=== PATIENT | male | born 1935 | race Caucasian/White ===

== ENCOUNTER 2021-08-05 06:21 | Inpatient (IN) | payer MEDICARE ==
[2021-08-05 07:45] LABS: INR-International Normal Ratio 1.1
[2021-08-05 07:46] LABS: PTT 31.1 sec (22.9-36.1)
[2021-08-05 07:48] LABS: ALT (SGPT) 17 U/L (8-55); AST (SGOT) 24 U/L (5-34); Albumin 3.2 g/dL (3.4-4.8); Alkaline Phosphatase 85 U/L (40-110); Anion Gap 11 mmol/L (10-20); BUN (Urea Nitrogen) 16 mg/dL (8.4-25.7); Bilirubin, Total 0.8 mg/dL (0.2-1.2); Calc. Creatinine Clearance 0 mL/min (70-130); Calcium 9.4 mg/dL (7.8-10.44); Carbon Dioxide 33 mmol/L (23-31); Chloride 98 mmol/L (98-107); Globulin 3.2 g/dL (2.4-3.5); Glucose 126 mg/dL (83-110); Potassium 4.2 mmol/L (3.5-5.1); Protein, Total 6.4 g/dL (5.8-8.1); Sodium 138 mmol/L (136-145)
[2021-08-05 07:59] LABS: #Basophils 0.1 thou/uL (0.0-0.2); #Eosinphils 0.1 thou/uL (0.0-0.7); #Lymphocytes 2.1 thou/uL (1.20-3.40); #Monocytes 1.4 thou/uL (0.11-0.59); #Neutrophils 11.6 thou/uL (1.40-6.50); %Basophils 0.5 % (0.0-1.0); %Eosinophils 0.5 % (0.0-10.0); %Lymphocytes 13.9 % (21.0-51.0); %Monocytes 9.2 % (0.0-10.0); %Neutrophils 75.9 % (42.0-75.0); Hemoglobin 13.9 g/dL (14.0-18.0); MDiff Complete? YES; Mean Corpuscular HGB CONC 32.6 g/dL (32.0-36.0); Mean Corpuscular Hemoglobin 34.5 pg (27.0-31.0); Mean Platelet Volume 8.9 fL (7.4-10.4); Platelet Count 161 thou/uL (130-400); RBC Distribution Width 12.8 % (11.5-14.5); Red Blood Cell (RBC) Count 4.02 mill/uL (4.70-6.10); White Blood Cell (WBC) Count 15.3 thou/uL (4.8-10.8)
[2021-08-05 08:00] LABS: Macrocytosis SLIGHT = 6-15 cells (100X) (0-5/hpf)
[2021-08-05] MEDS ORDERED: Boostrix 0.5 ML (Tdap) VIAL ONE (08:16)
[2021-08-05] MEDS ORDERED: Morphine 2 MG/ML VIAL ONE (09:41)
[2021-08-05] MEDS ORDERED: Ondansetron PF 4 MG/2 ML Vial ONE (09:42)
[2021-08-05] MEDS ORDERED: hydrALAZINE 20 MG/ML VIAL SLOW IVP PRN (09:42)
[2021-08-05] MEDS ORDERED: Dextrose 50% Abboject 50 ML SYRINGE SLOW IVP PRN (09:42)
[2021-08-05] MEDS ORDERED: Dextrose 5% in Water 1,000 ML IV PRN (09:42)
[2021-08-05] MEDS ORDERED: Morphine 2 MG/ML VIAL SLOW IVP PRN (09:42)
[2021-08-05] MEDS ORDERED: Ondansetron PF 4 MG/2 ML Vial IVP PRN (09:42)
[2021-08-05] MEDS ORDERED: traMADol HCl 50 MG TAB PO PRN (09:48)
[2021-08-05] MEDS ORDERED: Cyclobenzaprine 10 MG TAB PO PRN (09:48)
[2021-08-05] MEDS ORDERED: Ibuprofen 600 MG TAB PO PRN (09:48)
[2021-08-05 11:15] LABS: SARS-CoV-2 NAA Rapid Test Not Detected (NotDetected)
[2021-08-05] MEDS: Sodium Chloride 0.9% 1,000 ML IV SCH (13:16)
[2021-08-05 14:56] VITALS: BMI 14.3
[2021-08-05] MEDS: Acetaminophen 500 MG TAB PO SCH ×3 (16:27→21:59)
[2021-08-05] MEDS: Gabapentin 100 MG CAP PO SCH ×2 (16:31→20:15)
[2021-08-05] MEDS: Latanoprost 0.005% Ophth Soln 2.5 ml Bottle EA EYE SCH (20:14)
[2021-08-05] MEDS: Senokot S 8.6-50 MG TAB PO SCH (20:16)
[2021-08-05] MEDS ORDERED: Famotidine 20 MG TAB PO SCH (21:00)
[2021-08-06] MEDS: Sodium Chloride 0.9% 1,000 ML IV SCH (01:20)
[2021-08-06] MEDS: Acetaminophen 500 MG TAB PO SCH ×4 (03:58→23:01)
[2021-08-06 06:45] LABS: #Lymphocytes 1.1 thou/uL (1.20-3.40); #Monocytes 1.3 thou/uL (0.11-0.59); #Neutrophils 10.2 thou/uL (1.40-6.50); %Basophils 0.2 % (0.0-1.0); %Eosinophils 0.2 % (0.0-10.0); %Lymphocytes 8.5 % (21.0-51.0); %Monocytes 10.3 % (0.0-10.0); %Neutrophils 80.8 % (42.0-75.0); Hemoglobin 12.8 g/dL (14.0-18.0); Mean Corpuscular HGB CONC 31.1 g/dL (32.0-36.0); Mean Corpuscular Hemoglobin 33.3 pg (27.0-31.0); Mean Platelet Volume 8.8 fL (7.4-10.4); Platelet Count 99 thou/uL (130-400); Platelet Morphology Comment Appears Decreased; RBC Distribution Width 12.9 % (11.5-14.5); Red Blood Cell (RBC) Count 3.84 mill/uL (4.70-6.10); White Blood Cell (WBC) Count 12.7 thou/uL (4.8-10.8)
[2021-08-06 06:50] LABS: Anion Gap 11 mmol/L (10-20); BUN (Urea Nitrogen) 12 mg/dL (8.4-25.7); Calc. Creatinine Clearance 53 mL/min (70-130); Calcium 8.5 mg/dL (7.8-10.44); Carbon Dioxide 30 mmol/L (23-31); Chloride 104 mmol/L (98-107); Glucose 91 mg/dL (83-110); Magnesium 1.8 mg/dL (1.6-2.6); Phosphorus 2.5 mg/dL (2.3-4.7); Potassium 4.3 mmol/L (3.5-5.1); Sodium 141 mmol/L (136-145)
[2021-08-06] MEDS ORDERED: Magnesium 2 GM/50 ML 2 GM in Premix Bag 1 BAG IVPB SCH (07:15)
[2021-08-06] MEDS ORDERED: PHOS-NAK 1 PKT PACK PO SCH (07:15)
[2021-08-06] MEDS ORDERED: CEFAZOLIN 2 GM in Premix Bag 1 BAG IVPB SCH (07:30)
[2021-08-06] MEDS ORDERED: predniSONE 5 MG TAB PO SCH (09:00)
[2021-08-06] MEDS: Gabapentin 100 MG CAP PO SCH ×4 (12:02→20:25)
[2021-08-06] MEDS: Folic Acid 1 MG TAB PO SCH (12:02)
[2021-08-06] MEDS: DorzolamidE/Timolol 2%/0.5% Ophth Soln 10 ml Bottle EA EYE SCH (12:02)
[2021-08-06] MEDS: Senokot S 8.6-50 MG TAB PO SCH ×2 (12:03→20:18)
[2021-08-06] MEDS: Magnesium Oxide 250 MG TAB PO SCH (12:03)
[2021-08-06] MEDS: Polyethylene Glycol 3350 17 GM Packet PO SCH (12:03)
[2021-08-06] MEDS: predniSONE 5 MG TAB PO SCH (12:03)
[2021-08-06] MEDS: Tamsulosin HCl 0.4 MG CAP PO SCH (12:04)
[2021-08-06] MEDS ORDERED: Famotidine/PF 20 mg/2ml Vial ONE (13:21)
[2021-08-06] MEDS ORDERED: Phenylephrine 10 MG/ML VIAL ONE (13:21)
[2021-08-06] MEDS ORDERED: Fentanyl 100 MCG/2 ML VIAL ONE (13:34)
[2021-08-06] MEDS ORDERED: PROPOFOL 200 MG/20 ML VIAL ONE (13:43)
[2021-08-06] MEDS ORDERED: Lidocaine 1% PF 5 ML VIAL ONE (13:43)
[2021-08-06] MEDS ORDERED: Dexamethasone 20 MG/5 ML VIAL ONE (13:43)
[2021-08-06] MEDS ORDERED: Ondansetron PF 4 MG/2 ML Vial ONE (13:43)
[2021-08-06] MEDS ORDERED: PHENYLEPHRINE-NS 100 MCG/ML 10 ML SYRINGE ONE (13:43)
[2021-08-06] MEDS: CEFAZOLIN 2 GM in Premix Bag 1 BAG IVPB SCH (20:17)
[2021-08-06] MEDS: Latanoprost 0.005% Ophth Soln 2.5 ml Bottle EA EYE SCH (20:18)
[2021-08-06] MEDS: traMADol HCl 50 MG TAB PO PRN (21:44)
[2021-08-07] MEDS: CEFAZOLIN 2 GM in Premix Bag 1 BAG IVPB SCH (04:36)
[2021-08-07] MEDS: Acetaminophen 500 MG TAB PO SCH ×3 (05:36→18:33)
[2021-08-07 05:41] LABS: #Lymphocytes 0.6 thou/uL (1.20-3.40); #Monocytes 1.1 thou/uL (0.11-0.59); #Neutrophils 8.8 thou/uL (1.40-6.50); %Basophils 0.1 % (0.0-1.0); %Eosinophils 0.1 % (0.0-10.0); %Lymphocytes 6.1 % (21.0-51.0); %Monocytes 10.6 % (0.0-10.0); %Neutrophils 83.2 % (42.0-75.0); Hemoglobin 10.5 g/dL (14.0-18.0); Mean Corpuscular HGB CONC 32.1 g/dL (32.0-36.0); Mean Corpuscular Hemoglobin 34.2 pg (27.0-31.0); Mean Platelet Volume 8.7 fL (7.4-10.4); Platelet Count 91 thou/uL (130-400); RBC Distribution Width 12.7 % (11.5-14.5); Red Blood Cell (RBC) Count 3.08 mill/uL (4.70-6.10); White Blood Cell (WBC) Count 10.5 thou/uL (4.8-10.8)
[2021-08-07 06:03] LABS: Anion Gap 10 mmol/L (10-20); BUN (Urea Nitrogen) 19 mg/dL (8.4-25.7); Calc. Creatinine Clearance 46 mL/min (70-130); Carbon Dioxide 30 mmol/L (23-31); Chloride 104 mmol/L (98-107); Glucose 145 mg/dL (83-110); Magnesium 2.1 mg/dL (1.6-2.6); Phosphorus 3.2 mg/dL (2.3-4.7); Potassium 4.7 mmol/L (3.5-5.1); Sodium 139 mmol/L (136-145)
[2021-08-07] MEDS: predniSONE 5 MG TAB PO SCH (09:12)
[2021-08-07] MEDS: Magnesium Oxide 250 MG TAB PO SCH (09:12)
[2021-08-07] MEDS: Senokot S 8.6-50 MG TAB PO SCH ×2 (09:12→20:21)
[2021-08-07] MEDS: Tamsulosin HCl 0.4 MG CAP PO SCH (09:12)
[2021-08-07] MEDS: Folic Acid 1 MG TAB PO SCH (09:12)
[2021-08-07] MEDS: DorzolamidE/Timolol 2%/0.5% Ophth Soln 10 ml Bottle EA EYE SCH (09:13)
[2021-08-07] MEDS: Polyethylene Glycol 3350 17 GM Packet PO SCH (09:23)
[2021-08-07] MEDS: Gabapentin 100 MG CAP PO SCH (10:41)
[2021-08-07] MEDS: Latanoprost 0.005% Ophth Soln 2.5 ml Bottle EA EYE SCH (20:21)
[2021-08-07] MEDS: Nicotine 7 MG PATCH TD SCH (20:21)
[2021-08-08] MEDS: Acetaminophen 500 MG TAB PO SCH ×4 (00:54→18:37)
[2021-08-08 06:11] LABS: #Eosinphils 0.1 thou/uL (0.0-0.7); #Lymphocytes 1.2 thou/uL (1.20-3.40); #Monocytes 0.9 thou/uL (0.11-0.59); #Neutrophils 5.7 thou/uL (1.40-6.50); %Basophils 0.4 % (0.0-1.0); %Eosinophils 0.7 % (0.0-10.0); %Monocytes 10.8 % (0.0-10.0); %Neutrophils 73.1 % (42.0-75.0); Hemoglobin 9.7 g/dL (14.0-18.0); Mean Corpuscular HGB CONC 30.9 g/dL (32.0-36.0); Mean Corpuscular Hemoglobin 32.8 pg (27.0-31.0); Mean Platelet Volume 8.9 fL (7.4-10.4); Platelet Count 90 thou/uL (130-400); RBC Distribution Width 12.4 % (11.5-14.5); Red Blood Cell (RBC) Count 2.97 mill/uL (4.70-6.10); White Blood Cell (WBC) Count 7.8 thou/uL (4.8-10.8)
[2021-08-08] MEDS ORDERED: Ferrous Sulfate 325 MG TAB PO SCH (08:00)
[2021-08-08] MEDS: Folic Acid 1 MG TAB PO SCH (09:10)
[2021-08-08] MEDS: Tamsulosin HCl 0.4 MG CAP PO SCH (09:10)
[2021-08-08] MEDS: Ferrous Sulfate 325 MG TAB PO SCH ×2 (09:11→20:00)
[2021-08-08] MEDS: predniSONE 5 MG TAB PO SCH (09:11)
[2021-08-08] MEDS: Magnesium Oxide 250 MG TAB PO SCH (09:11)
[2021-08-08] MEDS: Ascorbic Acid 500 mg Chewable Tablet PO SCH ×2 (09:11→20:00)
[2021-08-08] MEDS: Apixaban 2.5 MG TAB PO SCH ×2 (09:12→20:00)
[2021-08-08] MEDS: Polyethylene Glycol 3350 17 GM Packet PO SCH (09:12)
[2021-08-08] MEDS: DorzolamidE/Timolol 2%/0.5% Ophth Soln 10 ml Bottle EA EYE SCH (09:12)
[2021-08-08] MEDS: Senokot S 8.6-50 MG TAB PO SCH ×2 (09:12→20:00)
[2021-08-08] MEDS: Nicotine 7 MG PATCH TD SCH (18:32)
[2021-08-08] MEDS: traMADol HCl 50 MG TAB PO PRN ×2 (20:00→20:46)
[2021-08-08] MEDS: Latanoprost 0.005% Ophth Soln 2.5 ml Bottle EA EYE SCH (20:01)
[2021-08-09] MEDS: Acetaminophen 500 MG TAB PO SCH ×3 (00:13→11:46)
[2021-08-09] MEDS: Polyethylene Glycol 3350 17 GM Packet PO SCH (09:13)
[2021-08-09] MEDS: Senokot S 8.6-50 MG TAB PO SCH (09:14)
[2021-08-09] MEDS: Magnesium Oxide 250 MG TAB PO SCH (09:14)
[2021-08-09] MEDS: Ascorbic Acid 500 mg Chewable Tablet PO SCH (09:15)
[2021-08-09] MEDS: Folic Acid 1 MG TAB PO SCH (09:16)
[2021-08-09] MEDS: Apixaban 2.5 MG TAB PO SCH (09:17)
[2021-08-09] MEDS: Ferrous Sulfate 325 MG TAB PO SCH (09:17)
[2021-08-09] MEDS: predniSONE 5 MG TAB PO SCH (09:17)
[2021-08-09] MEDS: Tamsulosin HCl 0.4 MG CAP PO SCH (09:17)
[2021-08-09] MEDS: DorzolamidE/Timolol 2%/0.5% Ophth Soln 10 ml Bottle EA EYE SCH (09:18)
[2021-08-09 12:42] VITALS: BP 100/70; TEMP 98
== END 2021-08-09 12:30 | disposition home or self-care (01) | DRG 480 ==
LOC: ERS 06:21 → SURG A 09:22
PROVIDERS: ADMIT Surgery; ATTEND Surgery
PROC: 0QS704Z Reposition Left Upper Femur with Internal Fixation Device, Open Approach (ICD-10-PCS; principal; 2021-08-06)
DX: S72.142A Displaced intertrochanteric fracture of left femur, initial encounter for closed fracture (principal); J96.01 Acute respiratory failure with hypoxia; E44.1 Mild protein-calorie malnutrition; Z68.1 Body mass index [BMI] 19.9 or less, adult; Z20.822 Contact with and (suspected) exposure to COVID-19; W18.30XA Fall on same level, unspecified, initial encounter; S51.012A Laceration without foreign body of left elbow, initial encounter; J44.9 Chronic obstructive pulmonary disease, unspecified; F17.200 Nicotine dependence, unspecified, uncomplicated; I48.91 Unspecified atrial fibrillation; F03.90 Unspecified dementia, unspecified severity, without behavioral disturbance, psychotic disturbance, mood disturbance, and anxiety; K11.8 Other diseases of salivary glands; I95.9 Hypotension, unspecified; D69.6 Thrombocytopenia, unspecified; L89.151 Pressure ulcer of sacral region, stage 1; D64.9 Anemia, unspecified; Z85.118 Personal history of other malignant neoplasm of bronchus and lung; Z90.2 Acquired absence of lung [part of]; Z79.01 Long term (current) use of anticoagulants; Z79.899 Other long term (current) drug therapy; Z99.81 Dependence on supplemental oxygen
CPT/HCPCS: 36415; 70450; 71045; 72125; 80048; 80053; 83735; 84100; 84484; 85025; 85610; 85730; 86850; 86900; 86901; 90471; 90715; 93005; 94640; 96374; C1713; J0690; J1100; J2270; J2370; J2405; J2704; J3010; J3475; J7050; J7512; J7620; S0028; U0002

== ENCOUNTER 2021-08-23 20:50 | Inpatient (IN) | payer MEDICARE ==
[2021-08-23 21:39] LABS: Bilirubin Negative (Negative); Blood, Urine Trace (Negative); Clarity Extra Turbid (Clear); Glucose, Urine (Dipstick) Normal (Negative); Ketone, Urine Trace mg/dL (Negative); Leukocyte 75 Leu/uL (Negative); Nitrite Negative (Negative); Protein, Urine (Dipstick) 30 mg/dL (Neg-Trace); Specific Gravity, Urine 1.013 (1.002-1.036); Squamous Epithelial None Seen HPF (0-3); Urobilinogen Normal mg/dL (Less than 2); pH, Urine 7.5 (5.0-9.0)
[2021-08-23 21:42] LABS: #Lymphocytes 0.7 thou/uL (1.20-3.40); #Monocytes 0.5 thou/uL (0.11-0.59); #Neutrophils 5.2 thou/uL (1.40-6.50); %Basophils 0.1 % (0.0-1.0); %Lymphocytes 11.2 % (21.0-51.0); %Monocytes 7.6 % (0.0-10.0); Hemoglobin 11.6 g/dL (14.0-18.0); Mean Corpuscular HGB CONC 32.2 g/dL (32.0-36.0); Mean Corpuscular Hemoglobin 33.6 pg (27.0-31.0); Mean Platelet Volume 8.6 fL (7.4-10.4); Platelet Count 146 thou/uL (130-400); Red Blood Cell (RBC) Count 3.45 mill/uL (4.70-6.10); White Blood Cell (WBC) Count 6.4 thou/uL (4.8-10.8)
[2021-08-23 21:51] LABS: Bacteria/HPF 1+ HPF (None Seen)
[2021-08-23 22:00] LABS: ALT (SGPT) 15 U/L (8-55); AST (SGOT) 22 U/L (5-34); Albumin 2.7 g/dL (3.4-4.8); Alkaline Phosphatase 150 U/L (40-110); Anion Gap 10 mmol/L (10-20); BUN (Urea Nitrogen) 12 mg/dL (8.4-25.7); Bilirubin, Total 0.7 mg/dL (0.2-1.2); Calc. Creatinine Clearance 0 mL/min (70-130); Calcium 8.3 mg/dL (7.8-10.44); Carbon Dioxide 34 mmol/L (23-31); Chloride 101 mmol/L (98-107); Globulin 2.8 g/dL (2.4-3.5); Glucose 117 mg/dL (83-110); Protein, Total 5.5 g/dL (5.8-8.1); Sodium 141 mmol/L (136-145)
[2021-08-23 22:23] LABS: CKMB 1.3 ng/mL (0-6.6)
[2021-08-23] MEDS ORDERED: cefTRIAXone\\ROCEPHIN 2 GM VIAL ONE (22:26)
[2021-08-24 01:29] LABS: Troponin I 0.071 ng/mL (< 0.028)
[2021-08-24] MEDS ORDERED: Sodium Chloride 0.9% 1,000 ML IV SCH (04:30)
[2021-08-24 04:44] LABS: Troponin I 0.043 ng/mL (< 0.028)
[2021-08-24 06:02] LABS: SARS-CoV-2 NAA Rapid Test Not Detected (NotDetected)
[2021-08-24] MEDS ORDERED: Enoxaparin Sodium 30 MG/0.3 ML SYRINGE SC SCH (09:00)
[2021-08-24] MEDS ORDERED: Acetaminophen 325 MG TAB PO PRN (09:37)
[2021-08-24] MEDS ORDERED: Iopamidol-370 76% 500 ML 1 ML ONE (10:08)
[2021-08-24] MEDS ORDERED: Enoxaparin Sodium 30 MG/0.3 ML SYRINGE ONE (10:47)
[2021-08-24] MEDS ORDERED: cefTRIAXone\\ROCEPHIN 1 GM VIAL ONE ×2 (10:47→10:49)
[2021-08-24 10:59] LABS: Magnesium 1.9 mg/dL (1.6-2.6); Phosphorus 3.1 mg/dL (2.3-4.7)
[2021-08-24] MEDS: cefTRIAXone\\ROCEPHIN 1 GM in Sodium Chloride 0.9% 100 ML IVPB SCH (11:20)
[2021-08-24 16:35] VITALS: BMI 18.0
[2021-08-24] MEDS: Lorazepam 2 MG/ML VIAL SLOW IVP PRN (20:22)
[2021-08-25] MEDS: Lorazepam 2 MG/ML VIAL SLOW IVP PRN ×2 (01:07→23:33)
[2021-08-25] MEDS: Enoxaparin Sodium 30 MG/0.3 ML SYRINGE SC SCH (08:57)
[2021-08-25] MEDS: cefTRIAXone\\ROCEPHIN 1 GM in Sodium Chloride 0.9% 100 ML IVPB SCH (11:44)
[2021-08-25] MEDS ORDERED: Apixaban 2.5 MG TAB PO SCH (21:00)
[2021-08-25] MEDS: Latanoprost 0.005% Ophth Soln 2.5 ml Bottle EA EYE SCH (21:14)
[2021-08-25] MEDS: guaiFENesin ER 600 MG TAB PO SCH (21:15)
[2021-08-25] MEDS: DorzolamidE/Timolol 2%/0.5% Ophth Soln 10 ml Bottle EA EYE SCH (21:15)
[2021-08-25] MEDS: Ferrous Sulfate 325 MG TAB PO SCH (21:15)
[2021-08-25] MEDS: Sodium Chloride 0.9% 1,000 ML IV SCH (23:44)
[2021-08-26 04:49] LABS: #Eosinphils 0.1 thou/uL (0.0-0.7); #Lymphocytes 1.1 thou/uL (1.20-3.40); #Monocytes 0.7 thou/uL (0.11-0.59); #Neutrophils 4.7 thou/uL (1.40-6.50); %Basophils 0.1 % (0.0-1.0); %Eosinophils 0.8 % (0.0-10.0); %Lymphocytes 16.4 % (21.0-51.0); %Monocytes 10.4 % (0.0-10.0); %Neutrophils 72.3 % (42.0-75.0); Band 12 % (5-11); Eosinophils 1 % (0-10); Hemoglobin 11.4 g/dL (14.0-18.0); Lymphocytes 13 % (21-51); MDiff Complete? YES; Mean Corpuscular HGB CONC 30.4 g/dL (32.0-36.0); Mean Corpuscular Hemoglobin 32.3 pg (27.0-31.0); Metamyelocyte 1 % (0-0); Monocytes 8 % (0-10); Neutrophil 65 % (42-75); Platelet Count 103 thou/uL (130-400); Platelet Morphology Comment Appears Decreased; RBC Distribution Width 13.2 % (11.5-14.5); Red Blood Cell (RBC) Count 3.54 mill/uL (4.70-6.10); White Blood Cell (WBC) Count 6.5 thou/uL (4.8-10.8)
[2021-08-26 04:56] LABS: Anion Gap 14 mmol/L (10-20); BUN (Urea Nitrogen) 9 mg/dL (8.4-25.7); Calc. Creatinine Clearance 79 mL/min (70-130); Calcium 8.3 mg/dL (7.8-10.44); Carbon Dioxide 28 mmol/L (23-31); Chloride 108 mmol/L (98-107); Glucose 61 mg/dL (83-110); Potassium 4.7 mmol/L (3.5-5.1); Sodium 145 mmol/L (136-145)
[2021-08-26] MEDS: Aspirin 81 mg Enteric Coated Tablet PO SCH (09:34)
[2021-08-26] MEDS: Enoxaparin Sodium 30 MG/0.3 ML SYRINGE SC SCH (09:35)
[2021-08-26] MEDS: DorzolamidE/Timolol 2%/0.5% Ophth Soln 10 ml Bottle EA EYE SCH ×2 (09:35→20:46)
[2021-08-26] MEDS: guaiFENesin ER 600 MG TAB PO SCH ×2 (09:35→19:18)
[2021-08-26] MEDS: Ferrous Sulfate 325 MG TAB PO SCH ×2 (09:35→20:17)
[2021-08-26] MEDS: Folic Acid 1 MG TAB PO SCH (09:35)
[2021-08-26] MEDS: Tamsulosin HCl 0.4 MG CAP PO SCH (09:36)
[2021-08-26] MEDS: Sodium Chloride 0.9% 1,000 ML IV SCH (09:39)
[2021-08-26] MEDS: cefTRIAXone\\ROCEPHIN 1 GM in Sodium Chloride 0.9% 100 ML IVPB SCH (11:48)
[2021-08-26] MEDS: Dextrose 5 % And 0.9 % NaCl 1,000 ML IV SCH (11:48)
[2021-08-26] MEDS ORDERED: Piperacillin/Tazobactam 3.375 GM in Sodium Chloride 0.9% 100 ML IVPB SCH ×2 (17:00→18:00)
[2021-08-26] MEDS: Latanoprost 0.005% Ophth Soln 2.5 ml Bottle EA EYE SCH (20:47)
[2021-08-26] MEDS: Lorazepam 2 MG/ML VIAL SLOW IVP PRN (22:40)
[2021-08-26] MEDS: Piperacillin/Tazobactam 3.375 GM in Sodium Chloride 0.9% 100 ML IVPB SCH (22:45)
[2021-08-27] MEDS: Piperacillin/Tazobactam 3.375 GM in Sodium Chloride 0.9% 100 ML IVPB SCH ×3 (05:01→20:37)
[2021-08-27 05:04] LABS: #Eosinphils 0.1 thou/uL (0.0-0.7); #Monocytes 0.7 thou/uL (0.11-0.59); %Basophils 0.5 % (0.0-1.0); %Eosinophils 0.9 % (0.0-10.0); %Lymphocytes 14.9 % (21.0-51.0); %Monocytes 10.3 % (0.0-10.0); %Neutrophils 73.4 % (42.0-75.0); Hemoglobin 12.2 g/dL (14.0-18.0); Mean Corpuscular HGB CONC 31.4 g/dL (32.0-36.0); Mean Corpuscular Hemoglobin 32.5 pg (27.0-31.0); Mean Platelet Volume 8.8 fL (7.4-10.4); Platelet Count 94 thou/uL (130-400); RBC Distribution Width 13.2 % (11.5-14.5); Red Blood Cell (RBC) Count 3.76 mill/uL (4.70-6.10); White Blood Cell (WBC) Count 6.9 thou/uL (4.8-10.8)
[2021-08-27 05:29] LABS: Anion Gap 15 mmol/L (10-20); BUN (Urea Nitrogen) 7 mg/dL (8.4-25.7); Calc. Creatinine Clearance 78 mL/min (70-130); Calcium 7.8 mg/dL (7.8-10.44); Carbon Dioxide 30 mmol/L (23-31); Chloride 107 mmol/L (98-107); Glucose 100 mg/dL (83-110); Potassium 3.1 mmol/L (3.5-5.1); Sodium 149 mmol/L (136-145)
[2021-08-27] MEDS ORDERED: FLU VACC QS2021-22(65YR UP)/PF 240 MCG/0.7 ML SYRINGE IM ONE (09:45)
[2021-08-27] MEDS: Enoxaparin Sodium 30 MG/0.3 ML SYRINGE SC SCH (09:57)
[2021-08-27] MEDS: Ferrous Sulfate 325 MG TAB PO SCH ×2 (09:58→20:19)
[2021-08-27] MEDS: Aspirin 81 mg Enteric Coated Tablet PO SCH (09:58)
[2021-08-27] MEDS: DorzolamidE/Timolol 2%/0.5% Ophth Soln 10 ml Bottle EA EYE SCH ×2 (09:58→20:36)
[2021-08-27] MEDS: Folic Acid 1 MG TAB PO SCH (09:58)
[2021-08-27] MEDS: guaiFENesin ER 600 MG TAB PO SCH ×2 (09:58→20:19)
[2021-08-27] MEDS: Tamsulosin HCl 0.4 MG CAP PO SCH (09:59)
[2021-08-27] MEDS: Dextrose 5 % And 0.9 % NaCl 1,000 ML IV SCH (10:07)
[2021-08-27] MEDS ORDERED: Adenosine 6 MG/2 ML VIAL ONE ×2 (10:43→10:44)
[2021-08-27] MEDS ORDERED: Dextrose 5% in Water 1,000 ML IV SCH ×2 (11:30→13:45)
[2021-08-27] MEDS ORDERED: Amino Acids 4.25 %/Dextrose 5% 2,000 ML BAG IV SCH (12:00)
[2021-08-27] MEDS ORDERED: Potassium Chloride 40 MEQ in Sodium Chloride 0.9% 250 ML 250 ML IVPB SCH (12:00)
[2021-08-27] MEDS: Amino Acids 4.25 %/Dextrose 5% 1,000 ML IV SCH (13:15)
[2021-08-27 20:04] VITALS: TEMP 98.2
[2021-08-27] MEDS: Latanoprost 0.005% Ophth Soln 2.5 ml Bottle EA EYE SCH (20:37)
[2021-08-27] MEDS: Lorazepam 2 MG/ML VIAL SLOW IVP PRN (20:37)
[2021-08-27] MEDS ORDERED: Enoxaparin Sodium 60 MG/0.6 ML SYRINGE SC SCH (21:00)
[2021-08-28 00:36] VITALS: BP 127/80
[2021-08-28] MEDS: Amino Acids 4.25 %/Dextrose 5% 1,000 ML IV SCH (02:10)
[2021-08-28] MEDS: Piperacillin/Tazobactam 3.375 GM in Sodium Chloride 0.9% 100 ML IVPB SCH (06:37)
[2021-08-28] MEDS ORDERED: Pantoprazole 40 MG VIAL IVP SCH (09:00)
== END 2021-08-28 02:43 | disposition expired | DRG 689 ==
LOC: ERS 20:50 → ERHOLD 08-24 00:13 → 2NO 08-24 14:16
PROVIDERS: ADMIT Internal Medicine; ATTEND Family Medicine
PROC: 3E0G76Z Introduction of Nutritional Substance into Upper GI, Via Natural or Artificial Opening (ICD-10-PCS; principal; 2021-08-26)
DX: N39.0 Urinary tract infection, site not specified (principal); G93.41 Metabolic encephalopathy; E43 Unspecified severe protein-calorie malnutrition; J96.11 Chronic respiratory failure with hypoxia; J96.12 Chronic respiratory failure with hypercapnia; Z68.1 Body mass index [BMI] 19.9 or less, adult; E87.0 Hyperosmolality and hypernatremia; I47.2 Ventricular tachycardia; F05 Delirium due to known physiological condition; N17.9 Acute kidney failure, unspecified; Z66 Do not resuscitate; J44.9 Chronic obstructive pulmonary disease, unspecified; Z96.642 Presence of left artificial hip joint; F17.210 Nicotine dependence, cigarettes, uncomplicated; I48.91 Unspecified atrial fibrillation; F03.90 Unspecified dementia, unspecified severity, without behavioral disturbance, psychotic disturbance, mood disturbance, and anxiety; E86.0 Dehydration; I44.1 Atrioventricular block, second degree; E21.4 Other specified disorders of parathyroid gland; I48.0 Paroxysmal atrial fibrillation; R62.7 Adult failure to thrive; B95.7 Other staphylococcus as the cause of diseases classified elsewhere; I46.2 Cardiac arrest due to underlying cardiac condition; Z85.118 Personal history of other malignant neoplasm of bronchus and lung; Z98.890 Other specified postprocedural states; Z90.2 Acquired absence of lung [part of]; Z99.81 Dependence on supplemental oxygen; Z79.01 Long term (current) use of anticoagulants; Z88.8 Allergy status to other drugs, medicaments and biological substances; Z79.82 Long term (current) use of aspirin; Z79.899 Other long term (current) drug therapy; Z87.11 Personal history of peptic ulcer disease; Z87.81 Personal history of (healed) traumatic fracture; Z72.820 Sleep deprivation
CPT/HCPCS: 36415; 51701; 70450; 70491; 71045; 72193; 80048; 80053; 81003; 81015; 82140; 82553; 82607; 82746; 83605; 83735; 84100; 84145; 84484; 85025; 87040; 87077; 87086; 93005; 96365; J0153; J0696; J1650; J1956; J2060; J2543; J3411; J3480; J3490; J7042; J7050; J7070; Q9967; U0002